=== PATIENT | female | born 1970 | race Caucasian/White ===

== ENCOUNTER 2022-01-22 13:34 | Emergency (ER) | payer SELFPAY ==
[2022-01-22 15:33] LABS: Urine Bilirubin Negative (Negative); Urine Blood 2+ (Negative); Urine Color Yellow (Yellow); Urine Glucose Negative (Negative); Urine Protein 1+ (Negative); Urine Specific Gravity 1.015 (1.005-1.030)
[2022-01-22 15:55] LABS: Urine Microscopic Reflex ORDER UMIC
[2022-01-22 16:02] LABS: Urine Bacteria >50 /HPF (<20); Urine RBC 20-50 /HPF (NONE SEEN)
[2022-01-22 16:03] LABS: Urine Appearance CLOUDY (Clear)
[2022-01-22 16:37] LABS: Absolute Lymphocytes (CBC) 1.5 K/uL (0.7-4.9); Hematocrit 27.2 % (36.0-45.0); Lymphocytes % 9.3 % (15.3-44.8); MPV 6.9 fL (7.6-11.3); RBC Red Blood Cell Count 3.49 M/uL (3.86-4.86)
[2022-01-22 16:45] LABS: Albumin 2.1 g/dL (3.4-5.0); Potassium 3.1 mmol/L (3.5-5.1)
[2022-01-22 16:50] LABS: Bilirubin Total 0.2 mg/dL (0.2-1.0)
[2022-01-22] MEDS ORDERED: FAMOTIDINE 20 MG TAB ONE (17:15)
--- NOTE | 2022-01-22 17:21 | RAD REPORT ---
EXAM DESCRIPTION: US - Abdomen Exam Limited - 01/22/2022 5:12 pm CLINICAL HISTORY: ABD PAIN COMPARISON: No comparisons FINDINGS: The gallbladder demonstrates contraction without gallstones. No pericholecystic fluid or g allbladder wall thickening. The common bile duct is normal measuring 5 mm. The liver demonstrates hypoechoic mass in the right lobe measures 7 cm. IMPRESSION: No gallbladder/biliary tree abnormality seen. 7 cm mass in the right lobe liver. Recommend CT follow-up.
--- NOTE | 2022-01-22 17:33 | RAD REPORT ---
EXAM DESCRIPTION: CTAbdomen Pelvis W Contrast - 01/22/2022 5:18 pm CLINICAL HISTORY: Abdominal pain. Abdominal pain, acute, nonlocalized COMPARISON: Abdomen Exam Limited dated 01/22/2022 TECHNIQUE: Biphasic CT imaging of the abdomen and pelvis was performed with 100 ml non-ionic IV cont rast. All CT scans are performed using dose optimization technique as appropriate and may include automated exposure control or mA/KV adjustment according to patient size. FINDINGS: The lung bases are clear. The spleen, pancreas, adrenal glands and left kidney are within normal limits. There is a large multi loculated fluid density collection with thickened septa in the right upper quadrant measuring 10.0 x 8.0 cm. It is somewhat difficult to ascertain if this emanates from the inferior posterior right lobe of the liver or from the right kidney is mid aspect. No bowel obstruction, free air, free fluid or abscess. The appendix is not identified as a discrete structure, however, no secondary findings of appendicitis are identified. No evidence of significan t lymphadenopathy. No suspicious bony findings. IMPRESSION: Large multiloculated fluid density lesion in the right upper quadrant is present measuri ng 10 cm. This may emanate from the inferior posterior aspect of the right lobe liver or from the right kidney. It has the appearance of an abscess, however an unusual malignancy not excluded. The complex multi-septated and multilocular nature of this lesion as well as location make this lesio n not amenable to percutaneous drainage.
[2022-01-22] MEDS ORDERED: NA CHLORIDE 0.9% 100 ML ONE (18:28)
[2022-01-22] MEDS ORDERED: PIPERACIL/TAZO 3.375 GM VIAL IV ONE (18:29)
[2022-01-22 18:51] LABS: Protime INR 1.25
--- NOTE | 2022-01-22 18:55 | ER ---
Nurse's Notes [facility] Name: Lashon Hernandez Age: 51 yrs Sex: Female : 1970 Arrival Date: 01/22/2022 Time: 13:35 Bed 12 Private MD: Diagnosis: Right renal abscess;leukocytosis;tachycardia Presentation: 01/22 13:52 Chief complaint: Patient states: RUQ pain X 2 weeks. Constant pain. Coronavirus screen: ld1 At this time, the client does not indicate any symptoms associated with coronavirus-19. Ebola Screen: No symptoms or risks identified at this time. Initial Sepsis Screen: Does the patient meet any 2 criteria? No. Patient's initial sepsis screen is negative. Does the patient have a suspected source of infection? No. Patient's initial sepsis screen is negative. Risk Assessment: Do you want to hurt yourself or someone else? Patient reports no desire to harm self or others. Onset of symptoms was January 22, 2022. 13:52 Method Of Arrival: Ambulatory ld1 13:52 Acuity: ALYSON 3 ld1 Triage Assessment: 13:54 General: Appears in no apparent distress. uncomfortable, Behavior is cooperative, ld1 appropriate for age, anxious, crying. Pain: Complains of pain in right upper quadrant and right lower quadrant Pain does not radiate. Pain currently is 10 out of 10 on a pain scale. EENT: No signs and/or symptoms were reported regarding the EENT system. Neuro: Level of Consciousness is awake, alert, obeys commands, Oriented to person, place, time, situation. Cardiovascular: Capillary refill < 3 seconds Patient's skin is warm and dry. Respiratory: Airway is patent Respiratory effort is even, unlabored. GI: Abdomen is flat, non-distended, Reports lower abdominal pain, upper abdominal pain, nausea. : No signs and/or symptoms were reported regarding the genitourinary system. Derm: No signs and/or symptoms reported regarding the dermatologic system. Musculoskeletal: No signs and/or symptoms reported regarding the musculoskeletal system. 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 - Social history:: Smoking status: Patient reports the use of cigarette tobacco products, smokes one-half pack cigarettes per day, Patient/guardian denies using alcohol. Assessment: 15:48 Reassessment: Patient appears in no apparent distress at this time. Patient and/or jb4 family updated on plan of care and expected duration. Pain level reassessed. Patient is alert, oriented x 3, equal unlabored respirations, skin warm/dry/pink. 18:05 Reassessment: Patient appears in no apparent distress at this time. Patient and/or jb4 family updated on plan of care and expected duration. Pain level reassessed. Patient is alert, oriented x 3, equal unlabored respirations, skin warm/dry/pink. 20:04 Reassessment: Patient appears in no apparent distress at this time. Patient and/or ld1 family updated on plan of care and expected duration. Pain level reassessed. Patient is alert, oriented x 3, equal unlabored respirations, skin warm/dry/pink. Vital Signs: 13:52 BP 122 / 79; Pulse 116; Resp 18; Temp 98.4(O); Pulse Ox 100% on R/A; Weight 54.43 kg; ld1 Height 5 ft. 3 in. (160.02 cm); Pain 6/10; 18:06 BP 118 / 80; Pulse 92; Resp 16; Temp 100.1; Pulse Ox 100% on R/A; jb4 20:04 BP 121 / 79; Pulse 84; Resp 18; Pulse Ox 100% on R/A; ld1 21:38 BP 92 / 58; Pulse 99; Resp 18; Temp 99.0(O); Pulse Ox 100% ; ld1 13:52 Body Mass Index 21.26 (54.43 kg, 160.02 cm) ld1 ED Course: 13:35 Patient arrived in ED. am2 13:43 Sin Mckinley DO is Attending Physician. ms3 13:54 Triage completed. ld1 13:54 Arm band placed on right wrist. ld1 16:20 Initial lab(s) drawn, by pa, sent to lab. Inserted saline lock: 24 gauge in right iw wrist, using aseptic technique. 16:33 Sinan Geronimo, CONNOR is Primary Nurse. jb4 17:14 US Abdomen Limited In Process Unspecified. EDMS 17:20 CT Abd/Pelvis - IV Contrast Only In Process Unspecified. EDMS 18:18 COVID-19 SARS RT PCR (Document "Date of Onset" if Symptomatic) Sent. [facility] 19:08 1825 SPOKE WITH ESV[facility] \\[facility] . 1836 DRJacquesTO WITH . zm 19:30 contacted [facility] spoke to Aoporva to inform her of patient's [facility] covid result. 20:20 administrative approval given by Kit Caldwell/ patient has been accepted to [address] bed 1642/ Dr. Pabon accepted the patient in transfer/report to be called to [phone]. 20:47 [facility] ETA 1 hour. mw2 Administered Medications: 16:58 Not Given (Other Intervention Used): Pepcid (famotidine) 20 mg IVP once; dilute with 10 jb4 mL 0.9% NaCl; give over 2 minutes 17:12 Drug: Pepcid (famotidine) 20 mg Route: PO; jb4 19:00 Drug: Zosyn (piperacillin-tazobactam) 3.375 grams Route: IVPB; Infused Over: 60 mins; jb4 Site: left jugular; Outcome: 18:54 ER care complete, transfer ordered by ms3 21:53 Patient left the ED. ld1 Signatures: Dispatcher [employer] EDChantell Hickey RN RN Sinan Geronimo RN RN 4 Matilda Navarrete [facility] Amanda Baker 2 Opal [place] 2 Sin Mckinley DO DO ms3 Celeste Gibbons RN RN ld1 Meenu Navarrete Corrections: (The following items were deleted from the chart) 17:03 17:03 Pepcid (famotidine) 20 mg PO jb4 jb4
--- NOTE | 2022-01-22 18:55 | EDPHYS ---
Physician Documentation [facility] Name: Lashon Hernandez Age: 51 yrs Sex: Female : 1970 Arrival Date: 01/22/2022 Time: 13:35 Bed 12 Private MD: ED Physician Sin Mckinley HPI: 01/22 18:41 This 51 yrs old Female presents to ER via Ambulatory with complaints of Abdominal Pain. ms3 18:41 The patient presents with abdominal pain in the right upper quadrant. Onset: The ms3 symptoms/episode began/occurred acutely. 18:41 The symptoms do not radiate. Associated signs and symptoms: Pertinent positives: ms3 nausea. The symptoms are described as achy. Modifying factors: The symptoms are alleviated by nothing, the symptoms are aggravated by breathing deeply. Severity of pain: At its worst the pain was severe in the emergency department the pain is unchanged. 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 - Social history:: Smoking status: Patient reports the use of cigarette tobacco products, smokes one-half pack cigarettes per day, Patient/guardian denies using alcohol. ROS: 18:41 Neck: Negative for injury, pain, and swelling, Cardiovascular: Negative for chest pain, ms3 and palpitations. Respiratory: Negative for shortness of breath, cough, wheezing, and pleuritic chest pain. 18:41 Skin: Negative for injury, rash, and discoloration, Psych: Negative for depression, anxiety, suicide ideation, homicidal ideation, and hallucinations. 18:41 Constitutional: Positive for chills. 18:41 Abdomen/GI: Positive for abdominal pain, nausea. 18:41 All other systems are negative. Exam: 17:36 ECG was reviewed by the Attending Physician. ms3 18:41 Constitutional: This is a well developed, well nourished patient who is awake, alert, ms3 and in no acute distress. Neck: Trachea midline, no cervical lymphadenopathy. Supple, full range of motion without nuchal rigidity, or vertebral point tenderness. No Meningismus. 18:41 MS/ Extremity: Pulses equal, no cyanosis. Neurovascular intact. Full, normal range of motion. Psych: Awake, alert, with orientation to person, place and time. Behavior, mood, and affect are within normal limits. 18:41 Cardiovascular: Rate: tachycardic, Rhythm: regular, Pulses: no pulse deficits are appreciated, Heart sounds: normal, normal S1and S2. Vital Signs: 13:52 BP 122 / 79; Pulse 116; Resp 18; Temp 98.4(O); Pulse Ox 100% on R/A; Weight 54.43 kg; ld1 Height 5 ft. 3 in. (160.02 cm); Pain 6/10; 18:06 BP 118 / 80; Pulse 92; Resp 16; Temp 100.1; Pulse Ox 100% on R/A; jb4 20:04 BP 121 / 79; Pulse 84; Resp 18; Pulse Ox 100% on R/A; ld1 21:38 BP 92 / 58; Pulse 99; Resp 18; Temp 99.0(O); Pulse Ox 100% ; ld1 13:52 Body Mass Index 21.26 (54.43 kg, 160.02 cm) ld1 MDM: 15:54 Patient medically screened. ms3 18:11 ED course: Discussed case with Dr Orozco and he recommends transfer [facility] level [place] care.. 18:41 Differential diagnosis: cholecystitis, Cholelithiasis, non-specific abd pain. Data ms3 reviewed: vital signs, nurses notes, lab test result(s), radiologic studies. Data interpreted: traffic monitor specialist: rate is 116 beats/min, rhythm is sinus tachycardia, with no ectopy, Interpretation: tachycardia. Counseling: I had a detailed discussion with the patient and/or guardian regarding: the historical points, exam findings, and any diagnostic results supporting the discharge/admit diagnosis, lab results, radiology results, the need to transfer to another facility, for higher level of care. ED course: Discussed case with Dr Lee and she accepts patient at [facility]. All questions answered. Discussed transfer with patient and she understands/ agrees with plan. All questions answered. HR has improved since arrival to the ED.. 01/22 15:34 Order name: Urinalysis; Complete Time: 18:01 EDMA 01/22 15:59 Order name: Urine Microscopic Only; Complete Time: 18:01 EDMS 01/22 16:01 Order name: CBC with Diff; Complete Time: 18:01 ms3 01/22 16:01 Order name: CMP; Complete Time: 18:01 ms3 01/22 16:01 Order name: Lipase; Complete Time: 18:01 ms3 01/22 16:01 Order name: CT Abd/Pelvis - IV Contrast Only; Complete Time: 18:01 ms3 01/22 16:06 Order name: Urine Culture EDMS 01/22 18:02 Order name: Blood Culture Adult (2) ms3 01/22 18:02 Order name: Lactate; Complete Time: 19:50 ms3 01/22 18:02 Order name: Protime (+inr); Complete Time: 18:54 ms3 01/22 18:02 Order name: Ptt, Activated; Complete Time: 18:54 ms3 01/22 18:15 Order name: COVID-19 SARS RT PCR (Document "Date of Onset" if Symptomatic); Complete kj1 Time: 19:50 01/22 16:01 Order name: IV Saline Lock; Complete Time: 16:58 ms3 01/22 16:01 Order name: Labs collected and sent; Complete Time: 16:58 ms3 01/22 16:01 Order name: Urine Dipstick-Ancillary (obtain specimen); Complete Time: 20:03 ms3 01/22 16:01 Order name: US Abdomen Limited; Complete Time: 18:01 ms3 01/22 18:02 Order name: Accucheck; Complete Time: 18:05 ms3 01/22 18:02 Order name: Cardiac monitoring; Complete Time: 18:05 ms3 01/22 18:02 Order name: EKG - Nurse/Tech; Complete Time: 18:05 ms3 01/22 18:02 Order name: IV Saline Lock - Large Bore; Complete Time: 18:05 ms3 01/22 18:02 Order name: O2 Per Protocol; Complete Time: 18:05 ms3 01/22 18:02 Order name: O2 Sat Monitoring; Complete Time: 18:05 ms3 EC:36 Rate is 97 beats/min. Rhythm is regular. QRS [place] is Normal. Clinical impression: ms3 Normal ECG. Interpreted by me. Administered Medications: 16:58 Not Given (Other Intervention Used): Pepcid (famotidine) 20 mg IVP once; dilute with 10 jb4 mL 0.9% NaCl; give over 2 minutes 17:12 Drug: Pepcid (famotidine) 20 mg Route: PO; jb4 19:00 Drug: Zosyn (piperacillin-tazobactam) 3.375 grams Route: IVPB; Infused Over: 60 mins; jb4 Site: left jugular; Disposition Summary: 01/22/22 18:54 Transfer Ordered Transfer Location: [facility] ms3 Reason: Higher level of care ms3 Condition: Stable ms3 Problem: new ms3 Symptoms: are unchanged ms3 Accepting Physician: Rosa(01/22/22 21:53) ld1 Diagnosis - Right renal abscess ms3 - leukocytosis ms3 - tachycardia ms3 Forms: - Medication Reconciliation Form ms3 - SBAR form ms3 Signatures: Dispatcher [employer] EDMS Sinan Geronimo RN RN jb4 Sin Mckinley DO DO ms3 Celeste Gibbons RN RN ld1 Corrections: (The following items were deleted from the chart) 16:04 16:02 UA MICROSCOPIC+U.LAB.BRZ ordered. EDMS EDMS 16:18 14:52 URINALYSIS+U.LAB.BRZ ordered. EDMS EDMS 21:53 18:54 Rosa ms3 ld1
[2022-01-22] MEDS ORDERED: ACETAMINOPHEN 160 MG/5 ML UCUP ONE (19:53)
[2022-01-22 22:11] VITALS: O2SAT 100
[2022-01-22 22:18] VITALS: BP 92/58; TEMP 99
--- NOTE | 2022-01-23 13:00 | EKG ---
Test Date: 2022-01-22 Test Time: 17:36:26 Agricultural Researcher: JUAN M MEASUREMENT RESULTS: Intervals: Rate: 97 [place]: 128 QRSD: 76 QT: 346 QTc: 439 [place]: P: 80 [place]: 128 QRS: 44 T: 66 INTERPRETIVE STATEMENTS: Normal sinus rhythm Normal ECG No previous ECG available for comparison Electronically Signed On 01-23-22 12:59:44 CDT by Rojas Hanna
== END 2022-01-22 21:53 | disposition short-term general hospital (02) ==
LOC: ER 13:34
DX: N15.1 Renal and perinephric abscess (principal); D72.829 Elevated white blood cell count, unspecified; R00.0 Tachycardia, unspecified; F17.210 Nicotine dependence, cigarettes, uncomplicated; Z20.822 Contact with and (suspected) exposure to COVID-19
CPT/HCPCS: 36415; 74177; 76705; 80053; 81003; 81015; 83605; 83690; 85025; 85610; 85730; 87040; 87086; 87088; 93005; 96374; 99284; J2543; Q9967; U0003

== ENCOUNTER 2022-03-01 13:12 | Emergency (ER) | payer SELFPAY ==
[2022-03-01] MEDS ORDERED: NA CHLORIDE 0.9% 1,000 ML ONE (13:50)
[2022-03-01] MEDS ORDERED: ONDANSETRON 4 MG/2 ML VIAL ONE ×3 (13:50→20:30)
[2022-03-01] MEDS ORDERED: MORPHINE 4 MG/ML SYR ONE ×3 (13:50→20:30)
[2022-03-01 13:54] LABS: Absolute Lymphocytes (CBC) 1.2 K/uL (0.7-4.9); Hematocrit 31.1 % (36.0-45.0); Lymphocytes % 5.8 % (15.3-44.8); MCV 79.9 fL (80-100); MPV 7.3 fL (7.6-11.3); RBC Red Blood Cell Count 3.89 M/uL (3.86-4.86)
[2022-03-01 13:59] LABS: Protime INR 1.2
[2022-03-01 14:07] LABS: Albumin 2.4 g/dL (3.4-5.0); Bilirubin Total 0.3 mg/dL (0.2-1.0); Protein, Total 7.6 g/dL (6.4-8.2)
[2022-03-01 14:18] LABS: Urine Blood 1+ (Negative); Urine Glucose Negative (Negative); Urine Protein Trace (Negative); Urine Specific Gravity 1.015 (1.005-1.030)
[2022-03-01] MEDS ORDERED: PIPERACIL/TAZO 3.375 GM VIAL IV ONE (14:25)
[2022-03-01] MEDS ORDERED: NA CHLORIDE 0.9% 100 ML ONE (14:26)
[2022-03-01 14:58] LABS: Urine Bacteria <20 /HPF (<20)
[2022-03-01 15:04] LABS: Urine Specific Gravity/Preg 1.015 (1.005-1.030)
--- NOTE | 2022-03-01 15:15 | RAD REPORT ---
EXAM DESCRIPTION: CT - Abdomen Pelvis W Contrast - 03/01/2022 2:50 pm CLINICAL HISTORY: Abdominal pain COMPARISON: December 2021 TECHNIQUE: Computed axial tomography of the abdomen pelvis was obtained. 100 cc Isovue-300 was admin istered intravenously. Oral contrast was not requested which limits evaluation of bowel and appendix All CT scans are performed using dose optimization technique as appropriate and may include automated exposure control or mA/KV adjustment according to patient size. FINDINGS: A percutaneous drain has its tip in Harmon's pouch between the liver and kidney. A 6 x 4 centimeter multiloculated fluid collection lies within the posterior right abdomen. It abuts the right kidney. It contains many septations and loculations. The liver, spleen, pancreas, adrenal and kidneys otherwise appear unremarkable. There is no evidence of diverticulitis. Hysterectomy IMPRESSION: 6 x 4 centimeter multiloculated fluid collection containing many septations within the p osterior right abdomen probably an abscess
--- NOTE | 2022-03-01 17:13 | EDPHYS ---
Physician Documentation [facility] Name: Lashon Hernandez Age: 51 yrs Sex: Female : 1970 Arrival Date: 03/01/2022 Time: 13:14 Bed 13 Private MD: ED Physician Sin Mckinley HPI: 03/01 17:35 This 51 yrs old Female presents to ER via Ambulatory with complaints of Flank Pain, kb infection to drain site. 17:35 The patient presents with abdominal pain in the right upper quadrant, right lower kb quadrant. Onset: The symptoms/episode began/occurred 4 day(s) ago. The symptoms do not radiate. Associated signs and symptoms: none. The symptoms are described as constant. Modifying factors: The symptoms are alleviated by nothing, the symptoms are aggravated by pressure. Severity of pain: At its worst the pain was moderate in the emergency department the pain is unchanged. The patient has experienced a previous episode. The patient has been recently seen by a physician:. Pt reports she has a drain to right abd that was placed due to abscesses in liver. States she accidentally pulled on drain a week ago and felt like it moved on the inside, but not the outside. Reports no drainage for 4 days, increasing pain and swelling to right abd. . 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 - Social history:: Smoking status: Patient reports the use of cigarette tobacco products, denies chronic smoking, but will smoke occasionally. ROS: 14:19 Constitutional: Negative for fever, chills, and weight loss. kb 14:19 Abdomen/GI: Positive for abdominal pain, abdominal distension, no drainage from drain, discharge around drain site. . 14:19 All other systems are negative. Exam: 15:26 Head/Face: Normocephalic, atraumatic. ENT: Moist Mucous membranes Cardiovascular: kb Regular rate and rhythm with a normal S1 and S2. No gallops, murmurs, or rubs. No pulse deficits. Respiratory: Respirations even and unlabored. No increased work of breathing. Talking in full sentences Skin: Warm, dry with normal turgor. Normal color. MS/ Extremity: Pulses equal, no cyanosis. Neurovascular intact. Full, normal range of motion. Neuro: Awake and alert, GCS 15, oriented to person, place, time, and situation. Moves all extremities. Normal gait. Psych: Awake, alert, with orientation to person, place and time. Behavior, mood, and affect are within normal limits. 15:26 Constitutional: The patient appears alert, awake, in obvious pain. 15:26 Abdomen/GI: Inspection: drain in place to RUQ with mild erythema , Bowel sounds: normal, Palpation: soft, in all quadrants, moderate abdominal tenderness, in the right upper quadrant and right lower quadrant. Vital Signs: 13:30 BP 114 / 76; Pulse 113; Resp 20 S; Temp 99.2(O); Pulse Ox 100% on R/A; Weight 52.16 kg j9 (R); Height 5 ft. 3 in. (160.02 cm) (R); Pain 10/10; 14:00 BP 117 / 79; Pulse 101; Resp 18 S; Pulse Ox 100% on R/A; Pain 9/10; jg9 14:30 BP 117 / 83; Pulse 101; Resp 16 S; Pulse Ox 100% on R/A; Pain 4/10; jg9 15:00 BP 115 / 79; Pulse 97; Resp 17 S; Pulse Ox 100% on R/A; Pain 5/10; jg9 16:10 BP 105 / 71; Pulse 98; Resp 18 S; Pulse Ox 100% ; Pain 7/10; jg9 16:30 BP 100 / 67; Pulse 96; Resp 14 S; Pulse Ox 99% on R/A; jg9 18:00 BP 125 / 74; Pulse 93; Resp 16 S; Pulse Ox 100% ; Pain 5/10; jg9 18:30 BP 108 / 60; Pulse 92; Resp 17; Pulse Ox 100% on R/A; Pain 6/10; jg9 19:18 BP 97 / 58; Pulse 92; Resp 17; Pulse Ox 100% ; vc1 13:30 Body Mass Index 20.37 (52.16 kg, 160.02 cm) 9 MDM: 13:18 Patient medically screened. kb 14:18 Data reviewed: vital signs, nurses notes. Data interpreted: Pulse oximetry: on room air kb is 100 %. Interpretation: normal. 17:11 Counseling: I had a detailed discussion with the patient and/or guardian regarding: the kb historical points, exam findings, and any diagnostic results supporting the discharge/admit diagnosis, lab results, radiology results, the need to transfer to another facility. ED course: Dr Arguello accepts pt for transfer to [facility]. . 03/01 13:27 Order name: CBC with Diff; Complete Time: 14:01 kb 03/01 13:27 Order name: CMP; Complete Time: 14:09 kb 03/01 13:27 Order name: Lipase; Complete Time: 14:09 kb 03/01 13:27 Order name: Urine Microscopic Only; Complete Time: 15:13 kb 03/01 13:27 Order name: Blood Culture Adult (2) kb 03/01 13:27 Order name: Lactate; Complete Time: 14:14 kb 03/01 13:27 Order name: CT Abd/Pelvis - IV Contrast Only; Complete Time: 15:17 kb 03/01 13:27 Order name: Protime (+inr); Complete Time: 14:01 kb 03/01 13:27 Order name: Ptt, Activated; Complete Time: 14:01 kb 03/01 13:58 Order name: COVID-19 SARS RT PCR (Document "Date of Onset" if Symptomatic); Complete kb Time: 15:39 03/01 14:17 Order name: Urine --Ancillary (enter results); Complete Time: 15:13 em1 03/01 14:19 Order name: Urine Dipstick-Ancillary; Complete Time: 14:34 EDMS 03/01 13:27 Order name: IV Saline Lock; Complete Time: 13:57 kb 03/01 13:27 Order name: Labs collected and sent; Complete Time: 13:57 kb 03/01 13:27 Order name: Urine Test (obtain specimen); Complete Time: 14:17 kb Administered Medications: 13:45 Drug: morphine 4 mg Route: IVP; Infused Over: 4 mins; Site: right antecubital; jg9 14:13 Follow up: Response: No adverse reaction; Pain is decreased jg9 13:45 Drug: Zofran (Ondansetron) 4 mg Route: IVP; Site: right antecubital; jg9 14:13 Follow up: Response: No adverse reaction jg9 13:45 Drug: NS 0.9% 1000 ml Route: IV; Rate: 1000 ml; Site: right antecubital; jg9 17:14 Follow up: IV Status: Completed infusion; IV Intake: 1000ml jg9 14:45 Drug: Zosyn (piperacillin-tazobactam) 3.375 grams Route: IVPB; Infused Over: 60 mins; jg9 Site: right antecubital; 17:14 Follow up: IV Status: Completed infusion; IV Intake: 100ml jg9 16:21 Drug: Zofran (Ondansetron) 4 mg Route: IVP; Infused Over: 2 mins; Site: right forearm; jg9 17:14 Follow up: Response: No adverse reaction jg9 16:21 Drug: morphine 4 mg Route: IVP; Infused Over: 4 mins; Site: right forearm; jg9 17:14 Follow up: Response: No adverse reaction jg9 17:41 CANCELLED (Duplicate Order): Pepcid (famotidine) 10 mg PO once jg9 17:41 CANCELLED (Duplicate Order): Benadryl (diphenhydrAMINE) 25 mg PO once jg9 17:52 Drug: Potassium Chloride 40 mEq Route: PO; jg9 18:10 Follow up: Response: No adverse reaction jg9 17:52 Drug: Benadryl (diphenhydrAMINE) 25 mg Route: PO; jg9 18:10 Follow up: Response: No adverse reaction jg9 17:52 Drug: Pepcid (famotidine) 20 mg Route: PO; jg9 18:10 Follow up: Response: No adverse reaction jg9 20:28 Drug: Zofran (Ondansetron) 4 mg Route: IVP; Site: right hand; vc1 20:31 Follow up: Response: No adverse reaction; administered upon transfer vc1 20:31 Drug: morphine 4 mg Route: IVP; Infused Over: 4 mins; Site: right hand; vc1 20:32 Follow up: Response: No adverse reaction; No adverse reaction; administred upon transfervc1 Disposition: 18:54 Co-signature as Attending Physician, Sin OROURKE was immediately available on-site ms3 in the Emergency Department for consultation in the care of the patient.. Disposition Summary: 03/01/22 17:12 Transfer Ordered Transfer Location: [facility] kb Reason: Higher level of care kb Condition: Stable kb Problem: an ongoing problem kb Symptoms: are unchanged kb Accepting Physician: Dr Arguello(03/01/22 20:33) vc1 Diagnosis - Abscess right posterior abdomen kb - Elevated white blood cell count kb Forms: - Medication Reconciliation Form kb - SBAR form kb Signatures: Dispatcher [employer] EDMS Vaishnavi Silva, ALLIANCES CONSULTANT-C ALLIANCES CONSULTANT-CkSin Dash DO DO ms3 Anum Quezada, RN RN jg9 Judy Lopez RN RN vc1 Corrections: (The following items were deleted from the chart) 14:21 14:19 Abdomen/GI: Positive for abdominal pain, kb kb 17:41 17:40 Pepcid (famotidine) 10 mg PO once ordered. jg9 jg9 17:41 17:40 Benadryl (diphenhydrAMINE) 25 mg PO once ordered. jg9 jg9 20:33 17:12 Dr Arguello kb vc1
--- NOTE | 2022-03-01 17:13 | ER ---
Nurse's Notes [facility] Name: Lashon Hernandez Age: 51 yrs Sex: Female : 1970 Arrival Date: 03/01/2022 Time: 13:14 Bed 13 Private MD: Diagnosis: Abscess right posterior abdomen;Elevated white blood cell count Presentation: 03/01 13:30 Chief complaint: Patient states: she has a jag drain that is in her liver that has not jg9 been draining for 5 days no matter what she has done to get it to work, patient reports worsening pain on the r abdominal region, and swelling on the right side. Coronavirus screen: Vaccine status: Patient reports being unvaccinated. Ebola Screen: Patient negative for fever greater than or equal to 101.5 degrees Fahrenheit, and additional compatible Ebola Virus Disease symptoms Patient denies exposure to infectious person. Patient denies travel to an Ebola-affected area in the 21 days before illness onset. Initial Sepsis Screen: Does the patient meet any 2 criteria? HR > 90 bpm. Does the patient have a suspected source of infection? Yes: Other: jag drain in rlq of abdomen-placed due to liver, renal, and other abscesses. Risk Assessment: Do you want to hurt yourself or someone else? Patient reports no desire to harm self or others. 13:30 Method Of Arrival: Ambulatory 9 13:30 Acuity: ALYSON 3 jg9 13:30 Onset of symptoms was February 24, 2022. j9 Triage Assessment: 13:30 General: Appears uncomfortable, Behavior is anxious. Pain: Complains of pain in jg9 posterior aspect of right lateral abdomen, right upper quadrant and right lower quadrant. 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 - Social history:: Smoking status: Patient reports the use of cigarette tobacco products, denies chronic smoking, but will smoke occasionally. Screenin:53 Abuse screen: Denies threats or abuse. Denies injuries from another. Nutritional jg9 screening: No deficits noted. Tuberculosis screening: No symptoms or risk factors identified. Fall Risk None identified. Assessment: 14:00 Reassessment: No changes from previously documented assessment. Patient and/or family jg9 updated on plan of care and expected duration. Pain level reassessed. Patient is alert, oriented x 3, equal unlabored respirations, skin warm/dry/pink. 15:00 Reassessment: No changes from previously documented assessment. Patient and/or family jg9 updated on plan of care and expected duration. Pain level reassessed. Patient is alert, oriented x 3, equal unlabored respirations, skin warm/dry/pink. Patient states feeling better. Patient states symptoms have improved. 16:00 Reassessment: No changes from previously documented assessment. Patient and/or family jg9 updated on plan of care and expected duration. Pain level reassessed. Patient is alert, oriented x 3, equal unlabored respirations, skin warm/dry/pink. 17:45 Reassessment: this nurse noted whelps to patient forearm where IV Zosyn was being jg9 administered-provider aware-medications ordered. 17:50 Reassessment: No changes from previously documented assessment. Patient and/or family jg9 updated on plan of care and expected duration. Pain level reassessed. Patient states feeling better. Patient states symptoms have improved. 18:09 Reassessment: attempted to call report for the transfer advised to call back in jg9 10-15min. 18:22 Reassessment: r arm whelps are cleared up now. 9 18:45 Reassessment: report called to CONNOR Del Valle (parachute marker) at [facility]. 9 19:19 Reassessment: Patient and/or family updated on plan of care and expected duration. Pain vc1 level reassessed. Patient is alert, oriented x 3, equal unlabored respirations, skin warm/dry/pink. Patient states symptoms have improved. Vital Signs: 13:30 BP 114 / 76; Pulse 113; Resp 20 S; Temp 99.2(O); Pulse Ox 100% on R/A; Weight 52.16 kg jg9 (R); Height 5 ft. 3 in. (160.02 cm) (R); Pain 10/10; 14:00 BP 117 / 79; Pulse 101; Resp 18 S; Pulse Ox 100% on R/A; Pain 9/10; jg9 14:30 BP 117 / 83; Pulse 101; Resp 16 S; Pulse Ox 100% on R/A; Pain 4/10; jg9 15:00 BP 115 / 79; Pulse 97; Resp 17 S; Pulse Ox 100% on R/A; Pain 5/10; jg9 16:10 BP 105 / 71; Pulse 98; Resp 18 S; Pulse Ox 100% ; Pain 7/10; jg9 16:30 BP 100 / 67; Pulse 96; Resp 14 S; Pulse Ox 99% on R/A; jg9 18:00 BP 125 / 74; Pulse 93; Resp 16 S; Pulse Ox 100% ; Pain 5/10; jg9 18:30 BP 108 / 60; Pulse 92; Resp 17; Pulse Ox 100% on R/A; Pain 6/10; jg9 19:18 BP 97 / 58; Pulse 92; Resp 17; Pulse Ox 100% ; vc1 13:30 Body Mass Index 20.37 (52.16 kg, 160.02 cm) jg9 ED Course: 12:30 Inserted saline lock: 20 gauge in right antecubital area, using aseptic technique. jg9 Blood collected. IV discontinued, infiltrated. 13:14 Patient arrived in ED. as 13:17 Anum Quezada, CONNOR is Primary Nurse. jg9 13:18 Vaishnavi Silva FNP-C is [facility]. kb 13:18 Sin Mckinley DO is Attending Physician. kb 13:40 EKG done, by ED staff, reviewed by Vaishnavi VILLANUEVA. dh3 13:50 Triage completed. jg9 13:53 Arm band placed on right wrist. jg9 13:59 Patient has correct armband on for positive identification. Bed in low position. Call jg9 light in reach. Side rails up X 1. Notified Nurse Practitioner and/or Physician Visualization Developer of WBC- 21.0. 14:17 Urine Microscopic Only Sent. mb7 14:17 COVID-19 SARS RT PCR (Document "Date of Onset" if Symptomatic) Sent. mb7 14:30 Inserted saline lock: 20 gauge in right forearm, using aseptic technique. jg9 14:51 CT Abd/Pelvis - IV Contrast Only In Process Unspecified. EDMS 18:22 Inserted saline lock: 22 gauge in right hand, using aseptic technique. jg9 20:30 No provider procedures requiring assistance completed. Patient transferred, IV remains vc1 in place. Administered Medications: 13:45 Drug: morphine 4 mg Route: IVP; Infused Over: 4 mins; Site: right antecubital; jg9 14:13 Follow up: Response: No adverse reaction; Pain is decreased jg9 13:45 Drug: Zofran (Ondansetron) 4 mg Route: IVP; Site: right antecubital; jg9 14:13 Follow up: Response: No adverse reaction jg9 13:45 Drug: NS 0.9% 1000 ml Route: IV; Rate: 1000 ml; Site: right antecubital; jg9 17:14 Follow up: IV Status: Completed infusion; IV Intake: 1000ml jg9 14:45 Drug: Zosyn (piperacillin-tazobactam) 3.375 grams Route: IVPB; Infused Over: 60 mins; jg9 Site: right antecubital; 17:14 Follow up: IV Status: Completed infusion; IV Intake: 100ml jg9 16:21 Drug: Zofran (Ondansetron) 4 mg Route: IVP; Infused Over: 2 mins; Site: right forearm; jg9 17:14 Follow up: Response: No adverse reaction jg9 16:21 Drug: morphine 4 mg Route: IVP; Infused Over: 4 mins; Site: right forearm; jg9 17:14 Follow up: Response: No adverse reaction jg9 17:41 CANCELLED (Duplicate Order): Pepcid (famotidine) 10 mg PO once jg9 17:41 CANCELLED (Duplicate Order): Benadryl (diphenhydrAMINE) 25 mg PO once jg9 17:52 Drug: Potassium Chloride 40 mEq Route: PO; jg9 18:10 Follow up: Response: No adverse reaction jg9 17:52 Drug: Benadryl (diphenhydrAMINE) 25 mg Route: PO; jg9 18:10 Follow up: Response: No adverse reaction jg9 17:52 Drug: Pepcid (famotidine) 20 mg Route: PO; jg9 18:10 Follow up: Response: No adverse reaction jg9 20:28 Drug: Zofran (Ondansetron) 4 mg Route: IVP; Site: right hand; vc1 20:31 Follow up: Response: No adverse reaction; administered upon transfer vc1 20:31 Drug: morphine 4 mg Route: IVP; Infused Over: 4 mins; Site: right hand; vc1 20:32 Follow up: Response: No adverse reaction; No adverse reaction; administred upon transfervc1 Medication: 18:45 VIS not applicable for this client. jg9 Intake: 17:14 IV: 1000ml; Total: 1000ml. jg9 17:14 IV: 100ml; Total: 1100ml. jg9 Outcome: 17:12 ER care complete, transfer ordered by . kb 20:32 Transferred by ground EMS to [facility], [facility], Transfer form completed. vc1 X-rays sent w/ patient. 20:32 Condition: good 20:33 Patient left the ED. vc1 Signatures: Dispatcher [employer] EDMS Vaishnavi Silva, SERVICE SHOP FOREMAN-C LING-Maryuri Barnett, Berta [facility] Sharee Miller 7 Anum Quezada RN RN jg9 Judy Lopez RN RN vc1 Corrections: (The following items were deleted from the chart) 14:24 14:23 Zosyn (piperacillin-tazobactam) 3.375 grams IVPB in right antecubital over 60 jg9 mins jg9 17:50 12:30 Inserted saline lock: 20 gauge in right antecubital area, using aseptic jg9 technique. Blood collected. jg9 18:10 18:10 Response: No adverse reaction jg9 jg9
[2022-03-01] MEDS ORDERED: POTASSIUM CL SA 10 MEQ TAB PO ONE (17:50)
[2022-03-01] MEDS ORDERED: DIPHENHYDRAMINE 25 MG TAB/CAP ONE (17:50)
[2022-03-01] MEDS ORDERED: FAMOTIDINE 20 MG TAB ONE (17:51)
[2022-03-01 21:22] VITALS: TEMP 99.2
[2022-03-01 21:39] VITALS: O2SAT 100
[2022-03-01 21:47] VITALS: BP 97/58
--- NOTE | 2022-03-04 13:55 | EKG ---
Test Date: 2022-03-01 Test Time: 13:36:46 Spa Therapist: AUTUMN MEASUREMENT RESULTS: Intervals: Rate: 110 MN: 122 QRSD: 70 QT: 340 QTc: 460 Homer: P: 70 MN: 122 QRS: 60 T: 77 INTERPRETIVE STATEMENTS: Sinus tachycardia Otherwise normal ECG Compared to ECG 01/22/2022 17:36:26 Sinus rhythm no longer present Electronically Signed On 03-04-22 13:49:26 CDT by Osmany Florez
== END 2022-03-01 20:33 | disposition short-term general hospital (02) ==
LOC: ER 13:12
DX: L02.211 Cutaneous abscess of abdominal wall (principal); F17.210 Nicotine dependence, cigarettes, uncomplicated; Z20.822 Contact with and (suspected) exposure to COVID-19; Z88.0 Allergy status to penicillin; Z88.3 Allergy status to other anti-infective agents
CPT/HCPCS: 36415; 74177; 80053; 81003; 81015; 81025; 83605; 83690; 85025; 85610; 85730; 87040; 93005; J2405; J2543; J7030; Q9967; U0003

== ENCOUNTER 2022-04-04 09:46 | Emergency (ER) | payer SELFPAY ==
[2022-04-04] MEDS ORDERED: MORPHINE 4 MG/ML SYR ONE (10:42)
[2022-04-04] MEDS ORDERED: NA CHLORIDE 0.9% 1,000 ML ONE (10:42)
[2022-04-04] MEDS ORDERED: ONDANSETRON 4 MG/2 ML VIAL ONE (10:42)
[2022-04-04 11:11] LABS: Absolute Lymphocytes (CBC) 1.8 K/uL (0.7-4.9); Hematocrit 36.7 % (36.0-45.0); Lymphocytes % 28.9 % (15.3-44.8); MCV 84.1 fL (80-100); MPV 7.9 fL (7.6-11.3); RBC Red Blood Cell Count 4.36 M/uL (3.86-4.86)
--- NOTE | 2022-04-04 12:11 | RAD REPORT ---
EXAM DESCRIPTION: CTAbdomen Pelvis W Contrast - 04/04/2022 11:55 am CLINICAL HISTORY: Assess drain placement COMPARISON: Abdomen Pelvis W Contrast dated 03/01/2022; Abdomen Pelvis W Contrast dated 01/22/2022 TECHNIQUE: CT of the abdomen and pelvis was performed. All CT scans are performed using dose optimization technique as appropriate and may include automated exposure control or mA/KV adjustment according to patient size. FINDINGS: Lower chest: No acute abnormality. Liver: No acute abnormality or suspicious lesions. Biliary: No biliary ductal dilatation. Stomach: No significant focal abnormality. Duodenum: No significant focal abnormality. Pancreas: No significant abnormality. Spleen: No significant abnormality. Adrenal: No suspicious lesions. Kidney/ureter: No hydronephrosis. No renal calculi. Retroperitoneum: Abnormal soft tissue is noted in the right paranephric space and extending into the subhepatic recess. No discrete fluid is remaining. The soft tissue extends into the right kidney. Vascular: No aneurysm. Bowel: No significant focal abnormality. Peritoneum: No ascites or free air. Bladder: Grossly unremarkable. Reproductive: No adnexal masses. Bones: No acute fracture. Other: Pigtail drainage catheter in the right posterior abdominal wall. No fluid is seen at the tip. IMPRESSION: Pigtail drainage catheter within the soft tissues of the right flank. The previously not ed fluid collection has resolved. Lobular mass like soft tissue remains in the paranephric space, sub hepatic recess, and involving the right kidney. This is suspicious for neoplasm and may already have been biopsied. If not, it could be sampled under both CT and u/s guidance.
--- NOTE | 2022-04-04 12:36 | EDPHYS ---
Physician Documentation [facility] Name: Lashon Hernandez Age: 51 yrs Sex: Female : 1970 Arrival Date: 04/04/2022 Time: 09:49 Bed 7 Private MD: Lori Puri ED Physician Sin Mckinley HPI: 04/04 12:56 This 51 yrs old Female presents to ER via Ambulatory with complaints of Pulled Drain kb tube. 12:59 Pt has drain for abscess that was [facility]. States the tubing got caught kb on a drawer handle and pulled. Reports pain since then with a slight amount of blood in tube. STates she is supposed to have the drain removed this week, but hasn't been able to schedule it yet. Reports no drainage since Friday of last week. Had teledoc visit with IR on and was told it was time for the drain to be removed and she could have it done any time this week.. Onset: The symptoms/episode began/occurred today. Severity of symptoms: At their worst the symptoms were moderate in the emergency department the symptoms are unchanged. The patient has not experienced similar symptoms in the past. The patient has not recently seen a physician. Historical: - Allergies: 10:01 CEPHALOSPORINS; iw 10:01 PENICILLINS; iw - PMHx: 10:01 Endometriosis of vagina; iw ROS: 12:52 Constitutional: Negative for fever, chills, and weight loss. kb 12:52 Abdomen/GI: Positive for pain to drain site. 12:52 All other systems are negative. Exam: 12:52 Constitutional: This is a well developed, well nourished patient who is awake, alert, kb and in no acute distress. Head/Face: Normocephalic, atraumatic. ENT: Moist Mucous membranes Cardiovascular: Regular rate and rhythm with a normal S1 and S2. No gallops, murmurs, or rubs. No pulse deficits. Respiratory: Respirations even and unlabored. No increased work of breathing. Talking in full sentences Skin: Warm, dry with normal turgor. Normal color. MS/ Extremity: Pulses equal, no cyanosis. Neurovascular intact. Full, normal range of motion. Neuro: Awake and alert, GCS 15, oriented to person, place, time, and situation. Moves all extremities. Normal gait. Psych: Awake, alert, with orientation to person, place and time. Behavior, mood, and affect are within normal limits. 12:52 Abdomen/GI: Inspection: drain noted to RLQ with loose suture. Minimal blood noted inside drain tube. , Bowel sounds: normal, Palpation: soft, in all quadrants, moderate abdominal tenderness, in the right lower quadrant. Vital Signs: 10:00 BP 169 / 104; Pulse 103; Resp 18; Pulse Ox 100% on R/A; Weight 54.43 kg; Height 5 ft. 3 tw2 in. (160.02 cm); Pain 7/10; 10:00 Temp 97.9(O); aa5 12:00 BP 161 / 97; Pulse 87; Resp 16 S; Pulse Ox 100% on R/A; ha1 10:00 Body Mass Index 21.26 (54.43 kg, 160.02 cm) tw2 MDM: 09:54 Patient medically screened. kb 10:12 Data reviewed: vital signs, nurses notes. Data interpreted: Pulse oximetry: on room air kb is 100 %. Interpretation: normal. 12:50 Counseling: I had a detailed discussion with the patient and/or guardian regarding: the kb historical points, exam findings, and any diagnostic results supporting the discharge/admit diagnosis, lab results, radiology results, the need for outpatient follow up, a family practitioner, IR, to return to the emergency department if symptoms worsen or persist or if there are any questions or concerns that arise at home. ED course: Discussed CT findings including mass with suspicion for neoplasm with pt. Pt states she was told she may have a cancerous area by the in [place] and they were going to start testing when the drain was removed. Pt will follow up to proceed with testing next week. 04/04 09:59 Order name: CBC with Diff kb 04/04 09:59 Order name: Basic Metabolic Panel; Complete Time: 11:27 kb 04/04 09:59 Order name: CT Abd/Pelvis - IV Contrast Only; Complete Time: 12:13 kb 04/04 09:59 Order name: IV Start; Complete Time: 11:47 kb Administered Medications: 11:42 Drug: morphine 4 mg Route: IVP; Infused Over: 4 mins; Site: right wrist; aa5 11:47 Follow up: Response: No adverse reaction aa5 11:42 Drug: Zofran (Ondansetron) 4 mg Route: IVP; Site: right wrist; aa5 11:47 Follow up: Response: No adverse reaction aa5 12:36 Not Given (pt c/o pain to sitee): NS 0.9% 1000 ml IV at 1000 ml once tw2 Disposition: 21:00 Co-signature as Attending Physician, Sin Mckinley DO I was immediately available on-site ms3 in the Emergency Department for consultation in the care of the patient. . Disposition Summary: 04/04/22 12:35 Discharge Ordered Location: Home kb Condition: Stable kb Diagnosis - Encounter for attention to dressings, sutures and drains kb Followup: kb - With: Emergency Department - When: As needed - Reason: Worsening of condition Followup: kb - With: Private Physician - When: 2 - 3 days - Reason: Recheck today's complaints, Continuance of care, Re-evaluation by your physician Forms: - Medication Reconciliation Form kb - Thank You Letter kb - Antibiotic Education kb - Prescription Opioid Use kb Signatures: Dispatcher [employer] EDVaishnavi Lan, LING-C [employer]-CkChantell Cope, RN RN iw Jazlyn Ferguson, RN RN aa5 Sin Mckinley DO DO ms3 Jenny Michael RN tw2 Corrections: (The following items were deleted from the chart) 12:56 12:52 Abdomen/GI: Positive for kb kb
--- NOTE | 2022-04-04 12:36 | ER ---
Nurse's Notes [facility] Name: Lashon Hernandez Age: 51 yrs Sex: Female : 1970 Arrival Date: 04/04/2022 Time: 09:49 Bed 7 Private MD: Lori Puir Diagnosis: Encounter for attention to dressings, sutures and drains Presentation: 04/04 09:58 Chief complaint: Patient states: accidentally pulled on her drain she has for an iw abscess by her kidney, the stitching has come loose and now there is blood in the tubing, was supposed to have it removed by IR in the next couple weeks but was unable to schedule it yet. Coronavirus screen: At this time, the client does not indicate any symptoms associated with coronavirus-19. Risk Assessment: Do you want to hurt yourself or someone else? Patient reports no desire to harm self or others. Onset of symptoms was April 04, 2022. 09:58 Method Of Arrival: Ambulatory iw 09:58 Acuity: ALYSON 3 iw Historical: - Allergies: 10:01 CEPHALOSPORINS; iw 10:01 PENICILLINS; iw - PMHx: 10:01 Endometriosis of vagina; iw Screenin:00 Abuse screen: Denies threats or abuse. Nutritional screening: No deficits noted. tw2 Tuberculosis screening: No symptoms or risk factors identified. Fall Risk None identified. Assessment: 09:53 General: Appears comfortable, Behavior is calm, cooperative. Pain: Pain does not ha1 radiate. Pain radiates to right lower quadrant. pt. states " the pain is all around the drainage tube" Pain currently is 10 out of 10 on a pain scale. Quality of pain is described as throbbing, Pain began 2-3 days ago. Is intermittent, Alleviated by medications, Aggravated by increased activity, Noted to be guarding. 09:53 Neuro: Level of Consciousness is awake, alert, obeys commands, Oriented to person, ha1 place, time, situation, Moves all extremities. Full function. Cardiovascular: Heart tones S1 S2 present. Respiratory: Airway is patent. 09:53 Respiratory: Airway is patent Breath sounds are clear bilaterally. ha1 09:53 GI: Abdomen is flat, non-distended, Bowel sounds present X 4 quads. Reports drainage ha1 tube was inserted to drain abscess. 09:53 : No signs and/or symptoms were reported regarding the genitourinary system. ha1 09:53 EENT: No signs and/or symptoms were reported regarding the EENT system. Derm: Skin ha1 drainage tube in the right lower quadrant of the abdomen. pt. reports intense pain around the tube area. Skin is pink, warm \\T\\ dry. Musculoskeletal: No signs and/or symptoms reported regarding the musculoskeletal system. Range of motion: intact in all extremities. 10:35 Reassessment: Pt is a hard stick, unable to obtain IV access at this time, pt only aa5 requesting IV attempts to right arm due to preference. . 10:50 Reassessment: Patient and/or family updated on plan of care and expected duration. Pain ha1 level reassessed. Patient is alert, oriented x 3, equal unlabored respirations, skin warm/dry/pink. 11:28 Reassessment: pt reports being a very hard stick. requests to place forearms in warm tw2 water at this time. 11:45 Reassessment: going to CT. ha1 12:12 Reassessment: Patient and/or family updated on plan of care and expected duration. Pain ha1 level reassessed. Patient is alert, oriented x 3, equal unlabored respirations, skin warm/dry/pink. 12:40 Reassessment: Patient is alert, oriented x 3, equal unlabored respirations, skin aa5 warm/dry/pink. Vital Signs: 10:00 BP 169 / 104; Pulse 103; Resp 18; Pulse Ox 100% on R/A; Weight 54.43 kg; Height 5 ft. 3 tw2 in. (160.02 cm); Pain 7/10; 10:00 Temp 97.9(O); aa5 12:00 BP 161 / 97; Pulse 87; Resp 16 S; Pulse Ox 100% on R/A; ha1 10:00 Body Mass Index 21.26 (54.43 kg, 160.02 cm) tw2 ED Course: 09:49 Patient arrived in ED. mr 09:49 Lori Puri is Private Physician. mr 09:50 Vaishnavi Silva FNP-C is [facility]. kb 09:50 Sin Mckinley DO is Attending Physician. kb 09:54 Jenny Michael RN is Primary Nurse. tw2 09:55 Missed attempt(s): 20 gauge in right antecubital area. ha1 10:00 Triage completed. iw 10:00 Arm band placed on. tw2 10:30 Missed attempt(s): 22 gauge in right antecubital area. Bleeding controlled, band aid aa5 applied, catheter tip intact. 10:35 Missed attempt(s): 22 gauge in right forearm. Bleeding controlled, band aid applied, aa5 catheter tip intact. 10:46 Stephany Morales, RN is Primary Nurse. ha1 10:50 Warm blanket given. ha1 11:15 Missed attempt(s): 22 gauge in right forearm. Missed attempt by corporate technical recruiter (Alaina). aa5 Bleeding controlled, band aid applied, catheter tip intact. 11:40 Inserted saline lock: 24 gauge in right wrist, using aseptic technique. aa5 11:57 CT Abd/Pelvis - IV Contrast Only In Process Unspecified. EDMS 12:36 IV discontinued, intact, bleeding controlled, No redness/swelling at site. Pressure tw2 dressing applied. Administered Medications: 11:42 Drug: morphine 4 mg Route: IVP; Infused Over: 4 mins; Site: right wrist; aa5 11:47 Follow up: Response: No adverse reaction aa5 11:42 Drug: Zofran (Ondansetron) 4 mg Route: IVP; Site: right wrist; aa5 11:47 Follow up: Response: No adverse reaction aa5 12:36 Not Given (pt c/o pain to sitee): NS 0.9% 1000 ml IV at 1000 ml once tw2 Outcome: 12:35 Discharge ordered by . maxine 12:40 Discharged to home ambulatory. aa5 12:40 Condition: stable 12:40 Discharge instructions given to patient, Instructed on discharge instructions, follow up and referral plans. Demonstrated understanding of instructions, follow-up care. 12:50 Patient left the ED. aa5 Signatures: Dispatcher [employer] EDMS Vaishnavi Sliva, KAY ROGERP-Kalee JulesaSharee Irene, RN CONNOR iw Jazlyn Ferguson RN RN aa5 Jenny Michael RN RN tw2 Stephany Morales, RN RN ha1 Corrections: (The following items were deleted from the chart) 10:54 09:53 GI: Abdomen is flat, non-distended, Reports drainage tube was inserted to ha1 ha1 12: 11:20 Missed attempt(s): 22 gauge in right forearm. Bleeding controlled, band aid aa5 applied, catheter tip intact. aa5 12: 11:15 Missed attempt(s): 22 gauge in right antecubital area. Bleeding controlled, band aa5 aid applied, catheter tip intact. aa5
[2022-04-04 13:01] VITALS: TEMP 97.9; O2SAT 100
[2022-04-04 13:03] VITALS: BP 161/97
[2022-04-04 13:36] LABS: Anisocytosis 1+; Blood Morphology Comment NOTED (NOT SEEN); Hypochromasia 1+; Platelet Estimate ADEQ; White Blood Cell Scan OK (OK)
== END 2022-04-04 12:50 | disposition home or self-care (01) ==
LOC: ER 09:46
DX: Z48.01 Encounter for change or removal of surgical wound dressing (principal)
CPT/HCPCS: 36415; 74177; 80048; 85025; 96374; 96375; 99283; J2405; J7030; Q9967

== ENCOUNTER 2023-04-29 18:38 | Inpatient (IN) | payer OTHER ==
[2023-04-29 19:41] LABS: Specific Gravity 1.023 (1.005-1.030); Urine Bacteria 20-50 /HPF (<20); Urine Bilirubin NEGATIVE (Negative); Urine Blood 3+ (Negative); Urine Clarity Extremely Turbid (Clear); Urine Color Light-Orange (Yellow); Urine Glucose NEGATIVE (Negative); Urine Mucus Slight /HPF (None Seen); Urine Protein 3+ (Negative); Urine RBC >50 /HPF (None Seen); Urine Urobilinogen Normal (Normal); Urine WBC Clump Moderate /HPF (None Seen)
[2023-04-29 20:07] LABS: Absolute Lymphocytes (CBC) 1.1 K/uL (0.7-4.9); Hematocrit 42.3 % (36.0-45.0); Lymphocytes % 7.6 % (15.3-44.8); MCV 90.9 fL (80-100); MPV 8.7 fL (7.6-11.3); Platelets 262 thou/uL (152-406); RBC Red Blood Cell Count 4.66 M/uL (3.86-4.86)
[2023-04-29 20:13] LABS: Protime INR 0.97
[2023-04-29 20:24] LABS: Albumin 3.7 g/dL (3.4-5.0); Bilirubin Total 1.2 mg/dL (0.2-1.0); Potassium 3.5 mEq/L (3.5-5.1); Protein, Total 7.7 g/dL (6.4-8.2)
--- NOTE | 2023-04-29 21:07 | RAD REPORT ---
EXAM DESCRIPTION: CT - Abdomen Pelvis W Contrast - 04/29/2023 8:55 pm CLINICAL HISTORY: Abdominal pain COMPARISON: 2021 TECHNIQUE: Computed axial tomography of the abdomen pelvis was obtained. 100 cc Isovue-300 was admin istered intravenously. Oral contrast was not requested which limits evaluation of bowel and appendix All CT scans are performed using dose optimization technique as appropriate and may include automated exposure control or mA/KV adjustment according to patient size. FINDINGS: Marked right hydronephrosis. Delay in concentration contrast within the right kidney. Stra nding within the fat adjacent to the right kidney. Right ureter is dilated. Soft tissue measuring approximately 2 centimeters craniocaudal length is pre sent within the distal right ureter extending into the right UVJ. Tiny left renal cyst. Liver, spleen, pancreas and adrenals unremarkable No evidence diverticulitis. No adnexal mass IMPRESSION: Soft tissue distal right ureter resulting in marked right hydronephrosis. Direct visuali zation is recommended
[2023-04-29] MEDS ORDERED: KETOROLAC 30 MG/ML INJ ONE (21:27)
[2023-04-29] MEDS ORDERED: METOCLOPRAMIDE 10 MG/2mL INJ ONE (21:27)
[2023-04-29] MEDS ORDERED: NA CHLORIDE 0.9% 1,000 ML ONE (21:27)
[2023-04-29] MEDS ORDERED: DIPHENHYDRAMINE 50 MG/ML VIAL ONE (21:27)
[2023-04-29] MEDS ORDERED: METRONIDAZOLE 500mg IVPB 500 MG/100 ML BAG IV ONE (22:15)
--- NOTE | 2023-04-29 22:43 | EDPHYS ---
Physician Documentation [facility] Name: Lashon Hernandez Age: 52 yrs Sex: Female : 1970 Arrival Date: 04/29/2023 Time: 18:38 Bed 14 Private MD: Lori Puri ED Physician Ellis Najera HPI: 04/29 23:27 This 52 yrs old Female presents to ER via Ambulatory with complaints of Abscess, kb Urinary Problem. 18:53 Interruption of urine flow started Friday, today started having lower right quadrant kb pain and fever. . 23:27 The patient presents with difficulty urinating, flank pain, RLQ pain. Onset: The kb symptoms/episode began/occurred 5 day(s) ago, and became worse today. Modifying factors: The symptoms are alleviated by nothing, the symptoms are aggravated by nothing. Associated signs and symptoms: The patient has no apparent associated signs or symptoms. Severity of symptoms: At their worst the symptoms were moderate, in the emergency department the symptoms are unchanged. The patient has experienced a previous episode. The patient has not recently seen a physician. Historical: - Allergies: 18:56 CEPHALOSPORINS; iw 18:56 PENICILLINS; iw - PMHx: 18:56 Endometriosis of vagina; iw - Immunization history:: Adult Immunizations up to date. - Social history:: Smoking status: Patient denies any tobacco usage or history of. ROS: 23:26 Constitutional: Negative for fever, chills, and weight loss. kb 23:26 Abdomen/GI: Positive for abdominal pain. 23:26 : Positive for flank pain, difficulty urinating. 23:26 All other systems are negative. Exam: 23:26 Constitutional: This is a well developed, well nourished patient who is awake, alert, kb and in no acute distress. Head/Face: Normocephalic, atraumatic. ENT: Moist Mucous membranes Cardiovascular: Regular rate and rhythm with a normal S1 and S2. No gallops, murmurs, or rubs. No pulse deficits. Respiratory: Respirations even and unlabored. No increased work of breathing. Talking in full sentences Skin: Warm, dry with normal turgor. Normal color. MS/ Extremity: Pulses equal, no cyanosis. Neurovascular intact. Full, normal range of motion. Neuro: Awake and alert, GCS 15, oriented to person, place, time, and situation. Moves all extremities. Normal gait. 23:26 Abdomen/GI: Inspection: abdomen appears normal, Bowel sounds: normal, Palpation: soft, in all quadrants, moderate abdominal tenderness, in the right lower quadrant. 23:26 Back: CVA tenderness, that is mild, that is moderate, is noted on the right. Vital Signs: 18:55 BP 140 / 92; Pulse 107; Resp 16; Temp 98.8; Pulse Ox 100% on R/A; iw 22:27 BP 120 / 74; Pulse 93; Resp 16; Pulse Ox 99% ; bp 04/30 00:46 BP 118 / 75; Pulse 82; Resp 16; Pulse Ox 99% ; bp MDM: 04/29 18:44 Patient medically screened. kb 23:26 Data reviewed: vital signs, nurses notes. kb 23:28 Differential diagnosis: kidney stone, nonspecific abdominal pain, urinary tract kb infection. Consideration of Admission/Observation Patient was admitted/placed on observation. Escalation of care including admission/observation considered. Management of patient was discussed with the following: Hospitalist: [facility] Bell accepts pt for admission. attempted transfer to [facility], discussed case with Dr Marsh who denies transfer because Dr Johnson will be available tomorrow and should be able to consult on this patient. . Counseling: I had a detailed discussion with the patient and/or guardian regarding the historical points, exam findings, and any diagnostic results supporting the discharge/admit diagnosis, lab results, radiology results, the need for further work-up and treatment in the hospital. 04/29 18:57 Order name: Blood Culture Adult (2) kb 04/29 18:57 Order name: CBC with Diff; Complete Time: 20:16 kb 04/29 18:57 Order name: CMP; Complete Time: 20:25 kb 04/29 18:57 Order name: Lactate w/ 2H reflex if indic.; Complete Time: 21:07 kb 04/29 18:57 Order name: Protime (+inr); Complete Time: 20:16 kb 04/29 18:57 Order name: Ptt, Activated; Complete Time: 20:16 kb 04/29 18:57 Order name: Urinalysis w/ reflexes; Complete Time: 19:55 kb 04/29 19:56 Order name: Urine Culture EDMS 04/29 18:57 Order name: CT Abd/Pelvis - IV Contrast Only; Complete Time: 21:08 kb 04/29 18:57 Order name: EKG; Complete Time: 18:58 kb 04/29 23:12 Order name: CONS Physician Consult EDMS 04/29 18:57 Order name: Accucheck; Complete Time: 19:12 kb 04/29 18:57 Order name: Cardiac monitoring; Complete Time: 19:12 kb 04/29 18:57 Order name: EKG - Nurse/Tech; Complete Time: 19:54 kb 04/29 18:57 Order name: IV Saline Lock - Large Bore; Complete Time: 19:54 kb 04/29 18:57 Order name: Labs collected and sent; Complete Time: 19:54 kb 04/29 18:57 Order name: O2 Per Protocol; Complete Time: 19:12 kb 04/29 18:57 Order name: O2 Sat Monitoring; Complete Time: 19:11 kb 04/29 18:57 Order name: Vital Signs; Complete Time: 19:11 kb Administered Medications: 21:22 Drug: metoCLOPramide IVP 10 mg Route: IVP; Site: left forearm; bp 04/30 00:45 Follow up: Response: No adverse reaction bp 04/29 21:22 Drug: Ketorolac IVP 15 mg Route: IVP; Site: left forearm; bp 04/30 00:45 Follow up: Response: No adverse reaction bp 04/29 21:23 Drug: diphenhydrAMINE IVP 12.5 mg Route: IVP; Site: left forearm; bp 04/30 00:45 Follow up: Response: No adverse reaction bp 04/29 22:00 Drug: metroNIDAZOLE IVPB 500 mg Volume: 100 ml; Route: IVPB; Rate: 200 ml/hr; Infused bp Over: 30 mins; Site: left forearm; 04/30 00:45 Follow up: IV Status: Completed infusion; IV Intake: 150ml bp 04/29 22:30 Drug: levofloxacin IVPB 750 mg Volume: 150 ml; Route: IVPB; Infused Over: 90 mins; bp Site: left forearm; 04/30 00:45 Follow up: IV Status: Completed infusion; IV Intake: 150ml bp Disposition Summary: 04/29/23 22:42 Hospitalization Ordered Hospitalization Status: Inpatient Admission kb Provider: Eduardo Mcgregor Condition: Stable kb Problem: new kb Symptoms: are unchanged kb Bed/Room Type: Standard kb Location: Telemetry/MedSurg (Inpatient)(04/30/23 00:04) cg Room Assignment: [facility](04/30/23 00:04) Diagnosis - Unspecified hydronephrosis - secondary to soft tissue in ureter kb - UTI/ Urinary tract infection, site not specified kb Forms: - Medication Reconciliation Form kb - SBAR form kb - Leadership Thank You Letter kb Signatures: Dispatcher [employer] EDVaishnavi Lan FNP-C LING-Chantell Haque, RN RN Humaira Pro, CONNOR RN Jero Mitchell RN RN bp Corrections: (The following items were deleted from the chart) 04/29 23:25 22:42 Telemetry/MedSurg (Inpatient) kb cg 23:25 22:42 kb cg 04/30 00:04 04/29 23:25 [facility] [[email or web address]] ER HOLD cg cg 04/30 00:04 04/29 23:25 ERHOLD- cg cg
--- NOTE | 2023-04-29 22:43 | ER ---
Nurse's Notes [facility] Name: Lashon Hernandez Age: 52 yrs Sex: Female : 1970 Arrival Date: 04/29/2023 Time: 18:38 Bed 14 Private MD: Lori Puri Diagnosis: Unspecified hydronephrosis-secondary to soft tissue in ureter;UTI/ Urinary tract infection, site not specified Presentation: 04/29 18:55 Chief complaint: Patient states: right sided abd pain, fever, hx of abscess in bladder. iw Coronavirus screen: At this time, the client does not indicate any symptoms associated with coronavirus-19. Ebola Screen: Patient negative for fever greater than or equal to 101.5 degrees Fahrenheit, and additional compatible Ebola Virus Disease symptoms Patient denies exposure to infectious person. Patient denies travel to an Ebola-affected area in the 21 days before illness onset. No symptoms or risks identified at this time. Initial Sepsis Screen: Does the patient meet any 2 criteria? HR > 90 bpm. Does the patient have a suspected source of infection?. Risk Assessment: Do you want to hurt yourself or someone else? Patient reports no desire to harm self or others. Onset of symptoms was April 28, 2023. 18:55 Method Of Arrival: Ambulatory iw 18:55 Acuity: ALYSON 3 iw Triage Assessment: 19:00 General: Appears uncomfortable, Behavior is calm, cooperative, appropriate for age. bp Pain: Complains of pain in right lower quadrant. EENT: No deficits noted. Neuro: No deficits noted. Cardiovascular: No deficits noted. Respiratory: No deficits noted. GI: Reports lower abdominal pain. : Reports urinary frequency. Derm: No deficits noted. Musculoskeletal: No deficits noted. Historical: - Allergies: 18:56 CEPHALOSPORINS; iw 18:56 PENICILLINS; iw - PMHx: 18:56 Endometriosis of vagina; iw - Immunization history:: Adult Immunizations up to date. - Social history:: Smoking status: Patient denies any tobacco usage or history of. Screenin:28 [facility] ED Fall Risk Assessment (Adult) History of falling in the last 3 months, bp including since admission No falls in past 3 months (0 pts). Abuse screen: Denies threats or abuse. Denies injuries from another. Nutritional screening: No deficits noted. Tuberculosis screening: No symptoms or risk factors identified. Assessment: 19:00 General: SEE TRIAGE NOTE. bp 22:28 Reassessment: Patient appears in no apparent distress at this time. Patient is alert, bp oriented x 3, equal unlabored respirations, skin warm/dry/pink. 04/30 00:42 Reassessment: ADMIT COMPLETE. REPORT TO JONNIE RYAN. bp Vital Signs: 04/29 18:55 BP 140 / 92; Pulse 107; Resp 16; Temp 98.8; Pulse Ox 100% on R/A; iw 22:27 BP 120 / 74; Pulse 93; Resp 16; Pulse Ox 99% ; bp 04/30 00:46 BP 118 / 75; Pulse 82; Resp 16; Pulse Ox 99% ; bp ED Course: 04/29 18:43 Patient arrived in ED. mr 18:43 Lori Puri is Private Physician. mr 18:44 Vaishnavi Silva FNP-C [facility]. kb 18:44 Ellis Najera MD is Attending Physician. kb 18:56 Triage completed. iw 18:56 Arm band placed on. iw 19:07 Jero Mitchell, RN is Primary Nurse. bp 19:30 Inserted saline lock: 22 gauge in left forearm, using aseptic technique. Blood bp collected. 20:57 CT Abd/Pelvis - IV Contrast Only In Process Unspecified. EDMS 22:28 Patient has correct armband on for positive identification. Bed in low position. Call bp light in reach. Side rails up X2. 22:42 Eduardo Mcgregor is Hospitalizing Provider. kb 04/30 00:44 Provided Education on: N/A. bp 00:44 No provider procedures requiring assistance completed. Patient admitted, IV remains in bp place. Administered Medications: 04/29 21:22 Drug: metoCLOPramide IVP 10 mg Route: IVP; Site: left forearm; bp 04/30 00:45 Follow up: Response: No adverse reaction bp 04/29 21:22 Drug: Ketorolac IVP 15 mg Route: IVP; Site: left forearm; bp 04/30 00:45 Follow up: Response: No adverse reaction bp 04/29 21:23 Drug: diphenhydrAMINE IVP 12.5 mg Route: IVP; Site: left forearm; bp 04/30 00:45 Follow up: Response: No adverse reaction bp 04/29 22:00 Drug: metroNIDAZOLE IVPB 500 mg Volume: 100 ml; Route: IVPB; Rate: 200 ml/hr; Infused bp Over: 30 mins; Site: left forearm; 04/30 00:45 Follow up: IV Status: Completed infusion; IV Intake: 150ml bp 04/29 22:30 Drug: levofloxacin IVPB 750 mg Volume: 150 ml; Route: IVPB; Infused Over: 90 mins; bp Site: left forearm; 04/30 00:45 Follow up: IV Status: Completed infusion; IV Intake: 150ml bp Intake: 00:45 IV: 150ml; Total: 150ml. bp 00:45 IV: 150ml; Total: 300ml. bp Outcome: 04/29 22:42 Decision to Hospitalize by Provider. kb 04/30 00:44 Admitted to Med/surg accompanied by nurse, via wheelchair, room 224, with chart, Report bp called to LONG RYAN Condition: stable Instructed on the need for admit. 01:14 Patient left the ED. bp Signatures: Dispatcher [employer] EDVaishnavi Lan, LING-C STEAM ROLLER OPERATOR-Sharee Pak Irene, RN RN iw Jero Mitchell RN RN bp
[2023-04-29] MEDS ORDERED: ACETAMINOPHEN 500 MG TAB PO PRN (23:13)
[2023-04-29] MEDS ORDERED: ZOLPIDEM TARTRATE 5 MG TABLET PO PRN (23:13)
[2023-04-29] MEDS ORDERED: ONDANSETRON 4 MG/2 ML VIAL IV PRN (23:13)
[2023-04-30] MEDS ORDERED: PIPER TAZO 3.375 GM in NA CHLORIDE 0.9% 100 ML IV ONE (00:45)
--- NOTE | 2023-04-30 01:35 | P.HP ---
Certification for Inpatient Patient admitted to: Observation With expected LOS: <2 Midnights Patient will require the following post-hospital care: None Practitioner: I am a practitioner with admitting privileges, knowledge of patient current condition, hospital course, and medical plan of care. Services: Services provided to patient in accordance with Admission requirements found in Title 42 Section 412.3 of the Code of Federal Regulations Patient History Date of Service: 04/30/23 Reason for admission: Abdominal pain History of Present Illness: 52-year-old female with a past medical history of endometriosis presents to the emergency room with Right lower quadrant pain difficulty urinating. She reports symptoms started 5 days ago. She reports symptoms are progressively getting worse. She denies fever chills, nausea vomiting diarrhea. Shortness of breath or chest pain. Plan to admit for Unspecified hydronephrosis - secondary to soft tissue in ureter, UTI/ Urinary tract infection, site not specified, consult urology Dr. Johnson. Laboratory evaluation WBCs 13.90 early left shift 85.9, acute kidney injury, creatinine 1.26, BUN 16 estimated GNR 51 UA leukoesterase greater than 500 WBCs greater than 50 20-50 urine bacteria, 3+ hematuria. CT of the abdomen pelvis Right ureter is dilated. Soft tissue measuring approximately 2 centimeters craniocaudal length is present within the distal right ureter extending into the right UVJ., IMPRESSION: Soft tissue distal right ureter resulting in marked right hydronephrosis. Direct visualization is recommended ER attempted transfer to [facility], discussed case with Dr Marsh who denies transfer because Dr Johnson will be available tomorrow and should be able to consult on this patient. Allergies Cephalosporins Adverse Reaction (Verified 04/30/23 00:40) Itching/Hives/Rash Penicillins Adverse Reaction (Verified 04/30/23 00:40) Itching/Hives/Rash - Past Medical/Surgical History Has patient received pneumonia vaccine in the past: No Diabetic: No - Social History Smoking Status: Never smoker Smoking therapy provided: No Patient receptive to therapy: No Alcohol use: No CD- Drugs: No Caffeine use: No Review of Systems 10-point ROS is otherwise unremarkable Physical Examination - Physical Exam General: Alert, In no apparent distress, Oriented x3 HEENT: Atraumatic, Normocephalic, PERRLA, Mucous membr. moist/pink Neck: Supple, 2+ carotid pulse no bruit, JVD not distended Respiratory: Clear to auscultation bilaterally, Normal air movement Cardiovascular: No edema, Normal pulses, Regular rate/rhythm, Normal S1 S2 Capillary refill: <2 Seconds Gastrointestinal: Normal bowel sounds, Other (Right CVA/ lower quadrant tenderness, ) Musculoskeletal: No clubbing, No swelling Integumentary: No rashes, No breakdown Neurological: Normal speech, Normal strength at 5/5 x4 extr, Normal tone, Sensation intact - Studies Laboratory Data (last 24 hrs) 04/29/23 04/29/23 04/29/23 19:55 19:55 19:55 WBC 13.90 H Hgb 14.1 Hct 42.3 Plt Count 262 PT 10.7 INR 0.97 APTT 34.3 Sodium 136 Potassium 3.5 BUN 16 Creatinine 1.26 H Glucose 89 Total Bilirubin 1.2 H AST 19 ALT 25 Alkaline Phosphatase 76 Assessment and Plan - Plan Assessment and plan Unspecified hydronephrosis - secondary to soft tissue in ureter Acute cystitis UTI/ Urinary tract infection, site not specified, consult urology Dr. Johnson. IV fluids, IV antibiotics, as needed analgesics, as needed antiemetics Laboratory evaluation WBCs 13.90 early left shift 85.9, acute kidney injury, creatinine 1.26, BUN 16 estimated GNR 51 UA leukoesterase greater than 500 WBCs greater than 50 20-50 urine bacteria, 3+ hematuria. CT of the abdomen pelvis Right ureter is dilated. Soft tissue measuring approximately 2 centimeters craniocaudal length is present within the distal right ureter extending into the right UVJ., IMPRESSION: Soft tissue distal right ureter resulting in marked right hydronephrosis. Direct visualization is recommended Diet n.p.o. after midnight Full code DVT SCDs Discharge Plan: Home Plan to discharge in: 24 Hours - Advance Directives Does patient have a Living Will: No Does patient have a Durable POA for Healthcare: No - Code Status/Comfort Care Code Status: Full Code Critical Care: No Time Spent Managing Pts Care (In Minutes): 50
[2023-04-30 01:39] VITALS: BMI 22.1
[2023-04-30] MEDS: MORPHINE 2 MG/ML SYR IV PRN ×3 (01:40→09:34)
[2023-04-30] MEDS: NA CHLORIDE 0.9% 1,000 ML IV SCH ×2 (01:40→09:34)
[2023-04-30 02:01] LABS: Absolute Lymphocytes (CBC) 0.8 K/uL (0.7-4.9); Hematocrit 38.5 % (36.0-45.0); Lymphocytes % 7.7 % (15.3-44.8); MCV 91.8 fL (80-100); MPV 8.6 fL (7.6-11.3); Platelets 173 thou/uL (152-406); RBC Red Blood Cell Count 4.19 M/uL (3.86-4.86)
[2023-04-30 02:12] LABS: Magnesium 1.9 mg/dL (1.6-2.4); Potassium 3.5 mEq/L (3.5-5.1)
--- NOTE | 2023-04-30 03:01 | P.HP ---
Certification for Inpatient Patient admitted to: Observation With expected LOS: <2 Midnights Patient will require the following post-hospital care: None Practitioner: I am a practitioner with admitting privileges, knowledge of patient current condition, hospital course, and medical plan of care. Services: Services provided to patient in accordance with Admission requirements found in Title 42 Section 412.3 of the Code of Federal Regulations Patient History Date of Service: 04/30/23 Reason for admission: Abdominal pain History of Present Illness: 52-year-old female with a past medical history of endometriosis presents to the emergency room with Right lower quadrant pain difficulty urinating. She reports symptoms started 5 days ago. She reports symptoms are progressively getting worse. She denies fever chills, nausea vomiting diarrhea. Shortness of breath or chest pain. Plan to admit for Unspecified hydronephrosis - secondary to soft tissue in ureter, UTI/ Urinary tract infection, site not specified, consult urology Dr. Johnson. Laboratory evaluation WBCs 13.90 early left shift 85.9, acute kidney injury, creatinine 1.26, BUN 16 estimated GNR 51 UA leukoesterase greater than 500 WBCs greater than 50 20-50 urine bacteria, 3+ hematuria. CT of the abdomen pelvis Right ureter is dilated. Soft tissue measuring approximately 2 centimeters craniocaudal length is present within the distal right ureter extending into the right UVJ., IMPRESSION: Soft tissue distal right ureter resulting in marked right hydronephrosis. Direct visualization is recommended ER attempted transfer to [facility], discussed case with Dr Marsh who denies transfer because Dr Johnson will be available tomorrow and should be able to consult on this patient. Allergies Cephalosporins Adverse Reaction (Verified 04/30/23 00:40) Itching/Hives/Rash Penicillins Adverse Reaction (Verified 04/30/23 00:40) Itching/Hives/Rash - Past Medical/Surgical History Has patient received pneumonia vaccine in the past: No Diabetic: No -: Klebs MDR UTI -: endometreosis -: neoplasms -: migraine -: abscess in bladder -: hysterectomy -: multiple bladder surgeries - Family History Father -: Heart disease, Diabetes, Kidney disease Notes: afib Mother History Unknown: Yes - Social History Smoking Status: Never smoker Alcohol use: No CD- Drugs: No Caffeine use: No Place of Residence: Home Review of Systems 10-point ROS is otherwise unremarkable Physical Examination - Vital Signs Temperature: 98.8 F Blood Pressure: 118/75 Pulse: 82 Respirations: 16 - Physical Exam General: Alert, In no apparent distress, Oriented x3, Other HEENT: Atraumatic, Normocephalic, PERRLA Neck: Supple, 2+ carotid pulse no bruit, JVD not distended Respiratory: Clear to auscultation bilaterally, Normal air movement Cardiovascular: No edema, Normal pulses, Regular rate/rhythm Capillary refill: <2 Seconds Gastrointestinal: Normal bowel sounds, Other (Right CVA tenderness, right lower quadrant tenderness) Musculoskeletal: No clubbing, No swelling Integumentary: No rashes, No breakdown Neurological: Normal gait, Normal speech, Normal strength at 5/5 x4 extr - Studies Laboratory Data (last 24 hrs) 04/29/23 04/29/23 04/29/23 19:55 19:55 19:55 WBC 13.90 H Hgb 14.1 Hct 42.3 Plt Count 262 PT 10.7 INR 0.97 APTT 34.3 Sodium 136 Potassium 3.5 BUN 16 Creatinine 1.26 H Glucose 89 Total Bilirubin 1.2 H AST 19 ALT 25 Alkaline Phosphatase 76 Assessment and Plan - Plan Assessment and plan Unspecified hydronephrosis - secondary to soft tissue in ureter Acute cystitis UTI/ Urinary tract infection, site not specified, consult urology Dr. Johnson. IV fluids, IV antibiotics, as needed analgesics, as needed antiemetics Laboratory evaluation WBCs 13.90 early left shift 85.9, acute kidney injury, creatinine 1.26, BUN 16 estimated GNR 51 UA leukoesterase greater than 500 WBCs greater than 50 20-50 urine bacteria, 3+ hematuria. CT of the abdomen pelvis Right ureter is dilated. Soft tissue measuring approximately 2 centimeters craniocaudal length is present within the distal right ureter extending into the right UVJ., IMPRESSION: Soft tissue distal right ureter resulting in marked right hydronephrosis. Direct visualization is recommended Diet n.p.o. after midnight Full code DVT SCDs Discharge Plan: Home - Advance Directives Does patient have a Living Will: No Does patient have a Durable POA for Healthcare: No - Code Status/Comfort Care Code Status Assessed: Yes Code Status: Full Code Physician Review: Patient Assessed, Agree with Above Assessment and Plan Critical Care: No Time Spent Managing Pts Care (In Minutes): 50
[2023-04-30 04:12] LABS: Blood Morphology Comment NOT SEEN (NOT SEEN); Platelet Estimate ADEQ
[2023-04-30] MEDS ORDERED: KCL 20 MEQ/100 mL IVPB 20 MEQ/100 ML BAG IV ONE (09:00)
[2023-04-30] MEDS ORDERED: PIPER TAZO 3.375 GM in NA CHLORIDE 0.9% 100 ML IV SCH (09:00)
[2023-04-30] MEDS ORDERED: NA CHLORIDE 0.9% 100 ML ONE (09:39)
[2023-04-30 10:56] LABS: Protime INR 1.2
[2023-04-30 12:04] VITALS: BP 157/90; TEMP 100.2
[2023-04-30 13:50] VITALS: O2SAT 96
--- NOTE | 2023-04-30 14:30 | P.DS ---
Admission Date: 04/30/23 Discharge Date: 04/30/23 Reason for Admission: Abdominal pain - Problems (1) Hydronephrosis, right Current Visit: Yes Status: Acute (2) Ureteral mass Current Visit: Yes Status: Acute (3) UTI (urinary tract infection) Current Visit: Yes Status: Acute (4) Complicated UTI (urinary tract infection) Current Visit: Yes Status: Acute Brief History of Present Illness: 52-year-old female with a past medical history of endometriosis presents to the emergency room with Right lower quadrant pain and difficulty urinating. She reports symptoms started 5 days ago. She reports symptoms have become progressively getting worse. She denied fever chills, nausea vomiting diarrhea. Shortness of breath or chest pain. Laboratory evaluation WBCs 13.90 early left shift 85.9, acute kidney injury, creatinine 1.26, BUN 16 estimated GNR 51 UA leukoesterase greater than 500 WBCs greater than 50 20-50 urine bacteria, 3+ hematuria. CT of the abdomen pelvis Right ureter is dilated. Soft tissue measuring approximately 2 centimeters craniocaudal length is present within the distal right ureter extending into the right UVJ., IMPRESSION: Soft tissue distal right ureter resulting in marked right hydronephrosis. ER attempted transfer to [facility], discussed case with Dr Marsh who denies transfer because Dr Johnson will be available tomorrow and should be able to consult on this patient. Patient was hospitalized for further management. Hospital Course: Patient was admitted to the medical floor, started on IV Zosyn and IV fluid. Urology was consulted. Patient was seen by Dr. Johnson who recommended transfer for percutaneous nephrostomy, and treatment of the urinary tract infection. According to Dr. Johnson patient told him she would like to leave. I went to the patient's room to discuss her plan of care right after Dr. Johnson discussed plan of care with me. Patient was noted in her room and was nowhere to be found. She eloped. Vital Signs/Physical Exam: Temp Pulse Resp BP Pulse Ox 100.2 F 108 H 16 157/90 H 96 04/30/23 12:00 04/30/23 12:00 04/30/23 12:00 04/30/23 12:00 04/30/23 12:00 Laboratory Data at Discharge: WBC 10.80 thou/uL (4.3-10.9) 04/30/23 01:28 Hgb 12.9 g/dL (12.0-15.0) D 04/30/23 01:28 Hct 38.5 % (36.0-45.0) 04/30/23 01:28 Plt Count 173 thou/uL (152-406) D 04/30/23 01:28 PT 13.2 SECONDS (9.5-12.5) H 04/30/23 10:32 INR 1.20 04/30/23 10:32 APTT 34.3 SECONDS (24.3-36.9) 04/29/23 19:55 Sodium 137 mEq/L (136-145) 04/30/23 01:28 Potassium 3.5 mEq/L (3.5-5.1) 04/30/23 01:28 BUN 13 mg/dL (7-18) 04/30/23 01:28 Creatinine 1.00 mg/dL (0.55-1.02) 04/30/23 01:28 Glucose 81 mg/dL (74-106) 04/30/23 01:28 Magnesium 1.9 mg/dL (1.6-2.4) 04/30/23 01:28 Total Bilirubin 1.2 mg/dL (0.2-1.0) H 04/29/23 19:55 AST 19 U/L (15-37) 04/29/23 19:55 ALT 25 U/L (13-56) 04/29/23 19:55 Alkaline Phosphatase 76 U/L (45-117) 04/29/23 19:55 Followup: Lori Quinn, PAC [Primary Care Provider] -
--- NOTE | 2023-04-30 18:44 | EKG ---
Test Date: 2023-04-29 Test Time: 19:19:18 Asset Liability Analyst: BP MEASUREMENT RESULTS: Intervals: Rate: 87 TN: 140 QRSD: 72 QT: 374 QTc: 450 Davy: P: 73 TN: 140 QRS: 15 T: 69 INTERPRETIVE STATEMENTS: Normal sinus rhythm Normal ECG Compared to ECG 03/01/2022 13:36:46 Sinus tachycardia no longer present Electronically Signed On 04-30-23 18:42:09 CDT by Osmany Florez
--- NOTE | 2023-04-30 19:31 | P.CNS ---
Date of Consult: 04/30/23 52-year-old woman with history of endometriosis, multiple prior abdominal surgeries following laparoscopic hysterectomy with adhesiolysis and appendectomy with intra-abdominal abscesses managed by percutaneous drains who denies prior malignant history but suggests a history of a presence of "neoplasms" involving her kidney and bladder, presented with right flank pain and difficulty urinating. She said her flank pain began on Friday and the difficulty urinating involved intermittency. That intermittency started on Friday evening. She said that she had had this previously, and it was her symptom of a UTI. She says in her 20s, she had a laparoscopic hysterectomy, and she underwent a surgery for adhesions in the early followed by an appendectomy and ultimately requiring management of intra-abdominal abscesses. She had been treated in multiple prior occasions and [facility], and she had a bit of a dismissive attitude about treatment and recommendations for treatment coming from locally. Past medical and surgical history as above Allergy to cephalosporins and penicillin No family history of urologic malignancy No history of smoking Examination: When I came into the room, the patient, who was initially lying on her side, sat up in bed hunched forward and placed her head in her hands. No dyspnea or sign of respiratory distress Affect - rather dismissive and slightly combative, asking if I was aware of the entirety of her prior surgical history from records at [facility] before I even came into the room 04/29/2023 WBC 13.9, hemoglobin 14.1, platelets 262, INR 1.2, creatinine 1.26, urine culture gram-negative rods sensitivities pending 04/30/2022 creatinine 1.0 (03/01/2022 creatinine 0.9 baseline) My review of the CT abdomen and pelvis performed 04/29/2023: Mild to moderate right-sided hydronephrosis with perinephric stranding and about 1.5 cm of dense material opacifying the distal ureteral lumen outside of the extramural ureter. Assessment and recommendation: 52-year-old woman with history of endometriosis, multiple prior abdominal surgeries following laparoscopic hysterectomy with adhesiolysis and appendectomy with intra-abdominal abscesses managed by percutaneous drains now with right- sided hydronephrosis and perinephric stranding in the setting of a leukocytosis consistent with possible pyelonephritis in the setting of distal right ureteral intraluminal obstruction of uncertain etiology likely underlying right flank pain. -I counseled the patient on options for care and management of her right renal obstruction likely causing the flank pain. I explained that the investigation would involve direct ureteroscopic investigation and potential biopsy of what ever was obstructing the ureteral lumen, but we would do this electively and not in the setting of active infection. -In the interim, I recommended right percutaneous nephrostomy tube be placed, and I explained she would need to be transferred to [facility] or [place] for that purpose because we do not have an interventional radiologist locally. While I explained this was not an emergency at this time, given the lack of definitive JODEE, I did explain she had signs of a complicating infection, which did need to be treated, and placement of the percutaneous nephrostomy tube may be valuable in clearing the infection. -As soon as I mentioned the potential need for transfer to another facility, she then dismissively suggested that she was told, and expected, that I would sit down and explain her situation to her and listen to her story. She did not feel like I spent enough time listening to the details of her history, to which I explained that my time, during the noon hour relative to multiple other consults I had pending, was indeed very limited; so I did need to focus the evaluation, which is why I interjected during her detailed historical explanations that went outside of my informational need. Despite this explanation, she was not satisfied and suggested she did not feel like I took enough time to listen and care for her properly; so [facility] She then suggested that she did not need to be transferred, she would simply get there herself. She just wanted to be discharged. -I attempted to explain to the patient that I had spent several minutes evaluating her circumstance before I even walked into the room and that my evaluation and recommendations were based in her care and in her best interest, but she just was not hearing it.
== END 2023-04-30 13:30 | disposition left against medical advice (07) | DRG 690 ==
LOC: ER 18:38 → ERHOLD 23:08 → 2ND 04-30 00:42 → OBSVTOIN 04-30 12:25
PROVIDERS: ADMIT Internal Medicine; ATTEND Internal Medicine
DX: N13.6 Pyonephrosis (principal); N17.9 Acute kidney failure, unspecified; N28.9 Disorder of kidney and ureter, unspecified; R31.9 Hematuria, unspecified; Z88.0 Allergy status to penicillin; Z88.1 Allergy status to other antibiotic agents; Z53.29 Procedure and treatment not carried out because of patient's decision for other reasons; Z90.710 Acquired absence of both cervix and uterus
CPT/HCPCS: 36415; 74177; 80048; 80053; 81001; 83605; 83735; 85025; 85610; 85730; 87040; 87077; 87086; 87088; 87186; 93005; 96365; 96366; 96375; 99285; G0378; J1200; J2270; J2543; J2765; J3480; J7030; Q9967